=== PATIENT | female | born 1965 | race Asian ===

== ENCOUNTER 2019-04-04 07:31 | Day surgery (SDC) | payer OTHER | END 2019-04-04 11:41 | disposition home or self-care (01) | LOC: GIL 07:31 | DX: Z12.11 Encounter for screening for malignant neoplasm of colon (principal); K64.8 Other hemorrhoids; K64.4 Residual hemorrhoidal skin tags; K29.30 Chronic superficial gastritis without bleeding; K25.7 Chronic gastric ulcer without hemorrhage or perforation | CPT/HCPCS: 43239; 88305; 88312 ==